=== PATIENT | male | born 1955 | race Caucasian/White ===

== ENCOUNTER 2021-02-06 09:07 | Outpatient (CLI) | payer OTHER | END 2021-02-06 09:13 | disposition home or self-care (01) | LOC: RAD 09:07 | PROVIDERS: ATTEND General Practice | DX: R09.89 Other specified symptoms and signs involving the circulatory and respiratory systems (principal); F17.200 Nicotine dependence, unspecified, uncomplicated ==

== ENCOUNTER 2021-02-25 10:30 | Outpatient (CLI) | payer OTHER | END 2021-02-25 10:44 | disposition home or self-care (01) | LOC: TOM 10:30 | PROVIDERS: ATTEND General Practice | DX: R07.89 Other chest pain (principal); R91.8 Other nonspecific abnormal finding of lung field; R05 Cough; F17.298 Nicotine dependence, other tobacco product, with other nicotine-induced disorders ==

== ENCOUNTER → 2021-03-03 08:49 | Outpatient (CLI) | payer OTHER | END | disposition home or self-care (01) | LOC: LAB 08:49 | PROVIDERS: ATTEND General Practice | DX: Z11.3 Encounter for screening for infections with a predominantly sexual mode of transmission (principal); Z11.1 Encounter for screening for respiratory tuberculosis; Z02.89 Encounter for other administrative examinations; Z11.59 Encounter for screening for other viral diseases ==